=== PATIENT | male | born 1985 | race Caucasian/White ===

== ENCOUNTER 2017-03-28 23:19 | Emergency (ER) | payer SELFPAY, MEDICAID ==
[2017-03-29] MEDS ORDERED: DEXAMETHASONE 10 MG/ML 1 ML INJ IV (04:30)
[2017-03-29] MEDS: LEVALBUTEROL (NEB) 1.25 MG/0.5 ML AMP INH (04:40)
[2017-03-29] MEDS: DEXAMETHASONE 10 MG/ML 1 ML INJ IM (04:59)
== END 2017-03-29 06:10 | disposition home or self-care (01) ==
LOC: FTE 23:19
DX: J20.9 Acute bronchitis, unspecified (principal)
CPT/HCPCS: 71045; 94664; 96372; 99284-25

== ENCOUNTER 2017-11-11 12:43 | Emergency (ER) | payer MEDICAID | END 2017-11-11 17:38 | disposition home or self-care (01) | LOC: FTE 12:43 | DX: L72.3 Sebaceous cyst (principal) | CPT/HCPCS: 10060; 99283-25 ==